=== PATIENT | female | born 1980 | race Caucasian/White ===

== ENCOUNTER 2018-04-26 11:13 | Outpatient (CLI) | payer OTHER ==
[2018-04-26 18:59] LABS: BASOPHILS % (AUTO) 0.5 %; EOSINOPHILS # (AUTO) 0.1 10^3/uL (0.0-0.7); EOSINOPHILS % (AUTO) 1.8 %; HGB - HEMOGLOBIN 14.3 g/dL (12.0-16.0); LYMPHOCYTES # (AUTO) 1.4 10^3/uL (1.5-3.5); MEAN CORPUSCULAR HEMOGLOBIN 31.5 pg (27.0-31.0); MEAN CORPUSCULAR HGB CONC 33.2 g/dL (32.0-36.0); MEAN CORPUSCULAR VOLUME 94.8 fL (81.0-99.0); MEAN PLATELET VOLUME 9.7 fL (7.9-10.8); MONOCYTES # (AUTO) 0.3 10^3/uL (0.0-1.0); MONOCYTES % (AUTO) 7.4 %; NEUTROPHILS # (AUTO) 1.7 10^3/uL (1.5-6.6); NEUTROPHILS % (AUTO) 49.3 %; PLT - PLATELET COUNT 179 10^3/uL (130-450); RED BLOOD COUNT 4.53 10^6/uL (4.20-5.40); RED CELL DISTRIBUTION WIDTH 12.5 % (12.0-15.0); WHITE BLOOD COUNT 3.4 x10^3/uL (4.8-10.8)
[2018-04-26 19:08] LABS: HB2 TOTAL 15.5 g/dL; HEMOGLOBIN A1C 0.52 g/dL; HEMOGLOBIN A1C % 5.2 % (4.6-6.2)
[2018-04-26 19:15] LABS: CHOL/HDL RATIO 4.1 (<4.4); CHOLESTEROL 207 mg/dL; GLUCOSE,FASTING 76 mg/dL (70-100); HDL CHOLESTEROL 50 mg/dL
[2018-04-26 19:30] LABS: LDL CHOLESTEROL,CALCULATED 145 mg/dL; LDL/HDL RATIO 2.9 (<4.4); VLDL CHOLESTEROL 12 mg/dL
== END 2018-04-26 23:59 | disposition home or self-care (01) ==
LOC: LAB.N 11:13
PROVIDERS: ATTEND Registered Nurse
DX: Z00.00 Encounter for general adult medical examination without abnormal findings (principal)
CPT/HCPCS: 36415; 80061; 82947; 83036; 83721; 84443; 85025

== ENCOUNTER 2018-08-12 11:00 | Outpatient (CLI) | payer OTHER ==
--- NOTE | 2018-08-12 15:37 | Ultrasound Report ---
Reason: TEST POSITIVE Procedure Date: 08/12/2018 Accession Number: [id number] / [id number] Procedure: US - OB First Trimester CPT Code: FULL RESULT: EXAM: FIRST TRIMESTER OBSTETRIC ULTRASOUND (Less than 11 weeks) EXAM DATE: 08/12/2018 11:45 AM. CLINICAL HISTORY: Positive test. For dating LMP: 06/19/2018. COMPARISONS: None. TECHNIQUE: Transabdominal and transvaginal ultrasound examination with static image documentation. CLINICAL DATES: EGA 7 weeks 5 days with CLEMENTE 03/26/2019 based on LMP. ASSESSMENT: Gestational Sac: Single intrauterine. Embryo: CRL (crown-rump length) 5.7 mm = 6 weeks 3 days. Cardiac activity: 124 beats per minute. Yolk sac: 1.5 mm. Amniotic fluid: Not accurately assessed at this gestational age. Early placenta: Not visible at this gestational age. Other: No perigestational fluid collection demonstrated. MATERNAL STRUCTURES: Uterus: Anteverted. Unremarkable. Cervix: Closed. Right Ovary/Adnexa: The ovary measures 3.4 x 2.5 x 2.7 cm, volume 12 cc. Unremarkable. Corpus luteum cyst 2.3 x 1.9 x 1.7 cm. Left Ovary/Adnexa: Left ovary not well seen. No left adnexal masses. Free Fluid: None. Other: None. IMPRESSION: 1. Single intrauterine at EGA 6 weeks 3 days with CLEMENTE 04/04/2019 based on crown-rump length, which is discordant with clinical dates. 2. Assigned dating is CLEMENTE 04/04/2019 based on current ultrasound. RADIA
== END 2018-08-12 11:01 | disposition home or self-care (01) ==
LOC: DI 11:00
PROVIDERS: ATTEND Nurse Practitioner Obstetrics & Gynecology
DX: Z32.01 Encounter for pregnancy test, result positive (principal)
CPT/HCPCS: 76801

== ENCOUNTER 2018-08-25 11:16 | Outpatient (CLI) | payer OTHER ==
[2018-08-25 17:49] LABS: MUDS CUTOFF CONCENTRATIONS CUTOFF CONC BELOW:
[2018-08-25 18:23] LABS: BILIRUBIN,URINE NEGATIVE (NEGATIVE); GLUCOSE, URINE (UA) NEGATIVE (NEGATIVE); KETONES,URINE (UA) NEGATIVE (NEGATIVE); LEUKOCYTE ESTERASE, URINE TRACE (NEGATIVE); NITRITE,URINE NEGATIVE (NEGATIVE); OCCULT BLOOD,URINE NEGATIVE (NEGATIVE); PROTEIN,URINE NEGATIVE (NEGATIVE); UROBILINOGEN,URINE 0.2 (NORMAL) E.U./dL (NORMAL)
[2018-08-25 18:28] LABS: CLARITY,URINE CLEAR (CLEAR)
[2018-08-25 18:38] LABS: AMPHETAMINE SCREEN,URINE NEGATIVE (NEGATIVE); BENZODIAZEPINES SCREEN, URINE NEGATIVE (NEGATIVE); COCAINE SCREEN URINE NEGATIVE (NEGATIVE); METHADONE SCREEN, URINE NEGATIVE (NEGATIVE); METHAMPHETAMINES SCREEN, URINE NEGATIVE (NEGATIVE); OPIATE SCREEN, URINE NEGATIVE (NEGATIVE); OXYCODONE SCREEN, URINE NEGATIVE (NEGATIVE); PROPOXYPHENE SCREEN, URINE NEGATIVE (NEGATIVE); TRICYCLIC ANTIDEPRESSANT,URINE NEGATIVE (NEGATIVE)
[2018-08-25 19:02] LABS: BACTERIA,URINE Few /HPF (None Seen); MUCUS,URINE Few Strands; RBC,URINE 0-5 /HPF (0-5); SQUAMOUS EPITHELIAL CELL,UR MANY Squamous (<= Few)
[2018-08-25 21:59] LABS: TRICHOMONAS VAGINALIS DNA NEGATIVE (NEGATIVE)
== END 2018-08-25 23:59 | disposition home or self-care (01) ==
LOC: LAB.R 11:16
PROVIDERS: ATTEND Registered Nurse
DX: O09.521 Supervision of elderly multigravida, first trimester (principal)
CPT/HCPCS: 80306; 81001; 87086; 87491; 87591; 87661

== ENCOUNTER 2018-09-20 11:21 | Outpatient (CLI) | payer OTHER ==
[2018-09-20 11:58] LABS: MUDS CUTOFF CONCENTRATIONS CUTOFF CONC BELOW:
[2018-09-20 12:06] LABS: BASOPHILS % (AUTO) 0.2 %; EOSINOPHILS % (AUTO) 0.2 %; HGB - HEMOGLOBIN 12.4 g/dL (12.0-16.0); LYMPHOCYTES # (AUTO) 1.5 10^3/uL (1.5-3.5); LYMPHOCYTES % (AUTO) 20.1 %; MEAN CORPUSCULAR HEMOGLOBIN 31.3 pg (27.0-31.0); MEAN CORPUSCULAR HGB CONC 33.8 g/dL (32.0-36.0); MEAN CORPUSCULAR VOLUME 92.5 fL (81.0-99.0); MEAN PLATELET VOLUME 8.2 fL (7.9-10.8); MONOCYTES # (AUTO) 0.5 10^3/uL (0.0-1.0); MONOCYTES % (AUTO) 6.3 %; NEUTROPHILS # (AUTO) 5.4 10^3/uL (1.5-6.6); NEUTROPHILS % (AUTO) 73.2 %; PLT - PLATELET COUNT 206 10^3/uL (130-450); RED BLOOD COUNT 3.95 10^6/uL (4.20-5.40); RED CELL DISTRIBUTION WIDTH 13.3 % (12.0-15.0); WHITE BLOOD COUNT 7.3 x10^3/uL (4.8-10.8)
[2018-09-20 12:07] LABS: BILIRUBIN,URINE NEGATIVE (NEGATIVE); GLUCOSE, URINE (UA) NEGATIVE (NEGATIVE); KETONES,URINE (UA) NEGATIVE (NEGATIVE); LEUKOCYTE ESTERASE, URINE TRACE (NEGATIVE); NITRITE,URINE NEGATIVE (NEGATIVE); OCCULT BLOOD,URINE NEGATIVE (NEGATIVE); PROTEIN,URINE NEGATIVE (NEGATIVE); UROBILINOGEN,URINE 0.2 (NORMAL) E.U./dL (NORMAL)
[2018-09-20 12:10] LABS: CLARITY,URINE CLEAR (CLEAR)
[2018-09-20 12:18] LABS: BACTERIA,URINE Few /HPF (None Seen); MUCUS,URINE Few Strands; RBC,URINE 0-5 /HPF (0-5); SQUAMOUS EPITHELIAL CELL,UR MANY Squamous (<= Few)
[2018-09-20 12:19] LABS: AMPHETAMINE SCREEN,URINE NEGATIVE (NEGATIVE); BENZODIAZEPINES SCREEN, URINE NEGATIVE (NEGATIVE); COCAINE SCREEN URINE NEGATIVE (NEGATIVE); METHADONE SCREEN, URINE NEGATIVE (NEGATIVE); METHAMPHETAMINES SCREEN, URINE NEGATIVE (NEGATIVE); OPIATE SCREEN, URINE NEGATIVE (NEGATIVE); OXYCODONE SCREEN, URINE NEGATIVE (NEGATIVE); PROPOXYPHENE SCREEN, URINE NEGATIVE (NEGATIVE); TRICYCLIC ANTIDEPRESSANT,URINE NEGATIVE (NEGATIVE)
[2018-09-21 11:57] LABS: HEPATITIS C ANTIBODY NON-REACTIVE (NON-REACTIVE)
[2018-09-21 11:59] LABS: HEPATITIS B SURFACE ANTIGEN NON-REACTIVE (NON-REACTIVE)
[2018-09-21 13:38] LABS: HIV AG/AB 4TH GEN NON-REACTIVE (NON-REACTIVE)
== END 2018-09-20 11:22 | disposition home or self-care (01) ==
LOC: LAB 11:21
PROVIDERS: ATTEND Registered Nurse
DX: Z36.89 Encounter for other specified antenatal screening (principal); Z31.5 Encounter for procreative genetic counseling
CPT/HCPCS: 80306; 81001; 81599; 85025; 86762; 86803; 86850; 86900; 86901; 87086; 87340; 87389

== ENCOUNTER 2018-11-16 09:01 | Outpatient (CLI) | payer OTHER ==
--- NOTE | 2018-11-18 08:11 | Ultrasound Report ---
Reason: ENCTR FOR OTHER SPECIFIED SCREENING Procedure Date: 11/16/2018 Accession Number: [id number] / [id number] Procedure: US - OB Detailed Eval CPT Code: FULL RESULT: EXAM: COMPLETE OBSTETRICAL ULTRASOUND EXAM DATE: 11/16/2018 04:40 PM. CLINICAL HISTORY: anatomic survey. COMPARISON: OB FIRST TRIMESTER 08/12/2018 11:07 AM. TECHNIQUE: Real-time sonographic evaluation of the fetus performed by the application chemist. Multiple inbound call center representative static images were saved for review. DATING: Established EGA 20 weeks 1 day with CLEMENTE 04/04/2019 based on first ultrasound/CRL. EGA 19 weeks 6 days with CLEMENTE 04/06/2019 based on the current ultrasound. GENERAL EVALUATION [place] . Cardiac activity: 155 bpm. movement: Visualized. Presentation: Variable. Placenta: Posterior position. No evidence for previa. Umbilical cord: 3 vessel cord. Central placental cord origin. Amniotic fluid: Normal RASHAUN 13.5 cm. 3.5 cm. BIOMETRY Bi-Parietal Diameter (BPD): 4.6 cm, 20 weeks 0 days Head Circumference (HC): 17.9 cm, 20 weeks 2 days Abdominal Circumference (AC): 15.7 cm, 20 weeks 6 days Femur Length (FL): 3.2 cm, 19 weeks 6 days Estimated Weight: 349 g, 58th percentile for 20 weeks 1 day. ANATOMY The intracranial structures, profile, face/nose/lips, spine, 4 chamber heart and outflow tracts, stomach, abdominal wall and cord insertion, diaphragm, kidneys, bladder, and extremities were visualized and demonstrate no abnormality. MATERNAL STRUCTURES Uterus: Unremarkable. Cervix: Long and closed. Transabdominal length 4.3 cm. Right ovary/adnexa: Unremarkable. Left ovary/adnexa: Unremarkable. Free fluid: None. IMPRESSION: 1. C[place] live intrauterine with gestational age 20 weeks 1 day based on first ultrasound. 2. Estimated weight is within expected limits for assigned dating. 3. Normal anatomic survey. No anatomic abnormalities are detected at this time. RADIA
== END 2018-11-16 09:02 | disposition home or self-care (01) ==
LOC: DI 09:01
PROVIDERS: ATTEND Nurse Practitioner Obstetrics & Gynecology
DX: O09.522 Supervision of elderly multigravida, second trimester (principal); Z3A.20 20 weeks gestation of pregnancy; Z36.89 Encounter for other specified antenatal screening
CPT/HCPCS: 76811

== ENCOUNTER 2019-01-05 09:34 | Outpatient (CLI) | payer OTHER ==
[2019-01-05 10:43] LABS: HGB - HEMOGLOBIN 10.1 g/dL (12.0-16.0); MEAN CORPUSCULAR HEMOGLOBIN 31.3 pg (27.0-31.0); MEAN CORPUSCULAR HGB CONC 33.2 g/dL (32.0-36.0); MEAN CORPUSCULAR VOLUME 94.1 fL (81.0-99.0); MEAN PLATELET VOLUME 9.3 fL (7.9-10.8); RED BLOOD COUNT 3.23 10^6/uL (4.20-5.40); RED CELL DISTRIBUTION WIDTH 12.7 % (12.0-15.0); WHITE BLOOD COUNT 6.8 x10^3/uL (4.8-10.8)
== END 2019-01-05 09:35 | disposition home or self-care (01) ==
LOC: LAB 09:34
PROVIDERS: ATTEND Obstetrics & Gynecology
DX: Z36.89 Encounter for other specified antenatal screening (principal)
CPT/HCPCS: 36415; 82950; 85027; 86850

== ENCOUNTER 2019-02-14 09:24 | Outpatient (CLI) | payer OTHER ==
[2019-02-14 09:45] LABS: HGB - HEMOGLOBIN 10.2 g/dL (12.0-16.0); MEAN CORPUSCULAR HEMOGLOBIN 31.2 pg (27.0-31.0); MEAN CORPUSCULAR HGB CONC 32.5 g/dL (32.0-36.0); MEAN PLATELET VOLUME 9.3 fL (7.9-10.8); RED BLOOD COUNT 3.27 10^6/uL (4.20-5.40); RED CELL DISTRIBUTION WIDTH 15.5 % (12.0-15.0)
== END 2019-02-14 09:25 | disposition home or self-care (01) ==
LOC: LAB 09:24
PROVIDERS: ATTEND Nurse Practitioner Obstetrics & Gynecology
DX: O99.019 Anemia complicating pregnancy, unspecified trimester (principal); Z3A.00 Weeks of gestation of pregnancy not specified
CPT/HCPCS: 36415; 85027

== ENCOUNTER 2019-03-06 07:00 | Outpatient (CLI) | payer OTHER ==
[2019-03-06 23:01] LABS: TRICHOMONAS VAGINALIS DNA NEGATIVE (NEGATIVE)
== END 2019-03-06 23:59 | disposition home or self-care (01) ==
LOC: LAB.R 07:00
PROVIDERS: ATTEND Nurse Practitioner Obstetrics & Gynecology
DX: Z36.85 Encounter for antenatal screening for Streptococcus B (principal); Z11.3 Encounter for screening for infections with a predominantly sexual mode of transmission
CPT/HCPCS: 87491; 87591; 87661; 87797

== ENCOUNTER 2019-03-06 10:12 | Outpatient (CLI) | payer OTHER ==
[2019-03-06 10:44] LABS: MEAN CORPUSCULAR HEMOGLOBIN 31.8 pg (27.0-31.0); MEAN CORPUSCULAR HGB CONC 32.4 g/dL (32.0-36.0); MEAN PLATELET VOLUME 9.8 fL (7.9-10.8); RED BLOOD COUNT 3.46 10^6/uL (4.20-5.40); RED CELL DISTRIBUTION WIDTH 15.3 % (12.0-15.0); WHITE BLOOD COUNT 5.7 x10^3/uL (4.8-10.8)
== END 2019-03-06 10:13 | disposition home or self-care (01) ==
LOC: LAB 10:12
PROVIDERS: ATTEND Nurse Practitioner Obstetrics & Gynecology
DX: O99.019 Anemia complicating pregnancy, unspecified trimester (principal); Z36.85 Encounter for antenatal screening for Streptococcus B; Z11.3 Encounter for screening for infections with a predominantly sexual mode of transmission
CPT/HCPCS: 36415; 85027; 87491; 87591; 87661; 87797

== ENCOUNTER 2019-04-04 14:59 | Inpatient (IN) | payer OTHER ==
[2019-04-04] MEDS ORDERED: LIDOCAINE-MPF 1% 30 ML VIAL ONE (15:20)
[2019-04-04] MEDS ORDERED: LACTATED RINGERS 1,000 ML IV ONE (15:21)
[2019-04-04] MEDS ORDERED: OXYTOCIN/DEXTROSE 5 % 30 UNIT/500 ML BAG IV ONE (15:21)
[2019-04-04] MEDS ORDERED: miSOPROStoL 200 MCG TABLET ONE (15:21)
[2019-04-04] MEDS ORDERED: OXYTOCIN/DEXTROSE 5 % 30 UNIT/500 ML BAG IV PRN (15:36)
[2019-04-04] MEDS ORDERED: ONDANSETRON 4 MG/2 ML VIAL IVP PRN (15:36)
[2019-04-04] MEDS ORDERED: fentaNYL 100 MCG/2 ML VIAL IVP PRN (15:36)
[2019-04-04] MEDS ORDERED: SODIUM CHLORIDE FLUSH 0.9% 10 ML SYRINGE IVP PRN (15:36)
[2019-04-04] MEDS ORDERED: LACTATED RINGERS 1,000 ML IV SCH (16:00)
[2019-04-04] MEDS ORDERED: TERBUTALINE 1 MG/ML VIAL SUBQ SCH (16:00)
[2019-04-04] MEDS ORDERED: ACETAMINOPHEN 325 MG TABLET PO SCH (16:00)
[2019-04-04 16:01] LABS: BASOPHILS % (AUTO) 0.2 %; HGB - HEMOGLOBIN 12.7 g/dL (12.0-16.0); LYMPHOCYTES % (AUTO) 12.4 %; MEAN CORPUSCULAR HEMOGLOBIN 33.1 pg (27.0-31.0); MEAN CORPUSCULAR VOLUME 97.1 fL (81.0-99.0); MEAN PLATELET VOLUME 10.7 fL (7.9-10.8); MONOCYTES # (AUTO) 0.5 10^3/uL (0.0-1.0); MONOCYTES % (AUTO) 5.7 %; NEUTROPHILS # (AUTO) 6.6 10^3/uL (1.5-6.6); NEUTROPHILS % (AUTO) 81.1 %; PLT - PLATELET COUNT 173 10^3/uL (130-450); RED BLOOD COUNT 3.84 10^6/uL (4.20-5.40); RED CELL DISTRIBUTION WIDTH 13.7 % (12.0-15.0); WHITE BLOOD COUNT 8.1 x10^3/uL (4.8-10.8)
--- NOTE | 2019-04-04 16:22 | HISTORY & PHYSICAL EXAMINATION ---
DATE OF SERVICE: 04/04/2019 Physician: Anna Beavers MD ADMISSION DIAGNOSES 1. Active labor at term. 2. Otherwise, uncomplicated medical and obstetrical history. CHIEF COMPLAINT: Labor. HISTORY OF PRESENT ILLNESS: The patient came to her OB appointment today with mild contractions. He r cervical exam was 4-5 cm dilated. She wanted to go home, and she was told to return for increasing labor symptoms. She indeed returned complaining of more painful contractions and pressure. PAST MEDICAL HISTORY: Negative. PAST SURGICAL HISTORY: [place] teeth. MEDICATIONS: vitamins and iron. SOCIAL HISTORY: No tobacco, alcohol or drug use. FAMILY HISTORY: Maternal grandmother and maternal aunt with breast cancer. OBSTETRIC HISTORY: Spontaneous vaginal delivery x3 in the past. REVIEW OF SYSTEMS: All AGA and uncomplicated. PHYSICAL EXAMINATION VITAL SIGNS: The patient is afebrile with normal vital signs. GENERAL: She is alert and pleasant, and is softly moaning with contractions. ABDOMEN: Nontender. EXTERNAL FEMALE GENITALIA: Normal. Sterile vaginal examination 9 cm, 100% effaced, 0 station, with a bulging bag of kelsey coming down to +2 station. Initial NST was category 1. ASSESSMENT AND PLAN: A 38-year-old G4, P3-0-0-3 at 40 weeks and 0 days by a 6-week ultrasound, who p resents with active spontaneous labor. heart evaluation is reassuring. She is vertex, AGA and group B strep negative. Anticipate normal spontaneous vaginal delivery. course also anticipated to be normal. She has received both her flu vaccine and her Tdap vaccine. She is Rh positive and rubella immune. TD: 04/04/2019 16:05
[2019-04-04] MEDS ORDERED: WITCH HAZEL/GLYCERIN 1 PAD TOP PRN (16:43)
[2019-04-04] MEDS ORDERED: HYDROCORTISONE 1% CREAM 28 GM TUBE PR PRN (16:43)
[2019-04-04] MEDS ORDERED: ONDANSETRON ODT 4 MG TABLET TL PRN (16:43)
[2019-04-04] MEDS ORDERED: ACETAMINOPHEN 325 MG TABLET PO PRN (16:45)
[2019-04-04] MEDS ORDERED: SODIUM CHLORIDE FLUSH 0.9% 10 ML SYRINGE IVP SCH (17:00)
[2019-04-04] MEDS: IBUPROFEN 600 MG TABLET PO SCH (20:29)
--- NOTE | 2019-04-04 20:54 | PROCEDURE REPORT ---
DATE OF SERVICE: 04/04/2019 Physician: Anna Beavers MD PREOPERATIVE DIAGNOSES 1. Intrauterine at 40 weeks and 0 days. 2. Active spontaneous labor. POSTOPERATIVE DIAGNOSIS: Status post spontaneous vaginal delivery at term. PROCEDURE: Spontaneous vaginal delivery at term. SURGEON: Anna Beavers MD FINDINGS: Liveborn female with a lusty cry. Clear amniotic fluid. No lacerations. ESTIMATED BLOOD LOSS: 200 mL DESCRIPTION OF PROCEDURE: The patient presented in active spontaneous labor on her due date at 8 cm. She received intermittent monitoring. She did not receive pain medicines other than comfort measur es per her request. She was more comfortable standing up and wished to push in that position. She be came complete at 1615. At 1620, her bag of water broke for clear fluid. At 1622, she delivered while standing without complications. There was no nuchal cord. Shoulders and body were easily delivered. The baby was given to mom who performed skin to skin with her. The umbilical cord was left pulsati ng for five minutes. It was clamped x2 and cut by the father of the baby. The cord was drained. The placenta was delivered spontaneously with Valsalva effort. It was intact with a 3-vessel cord. The re were no lacerations. Fundus was firm and 1 cm below the umbilicus post-placental delivery. The we ight and Apgars are pending. Baby is exhibiting signs of wanting to breastfeed. TD: 04/04/2019 16:44
[2019-04-04] MEDS ORDERED: DOCUSATE SODIUM 100 MG CAPSULE PO SCH (21:00)
[2019-04-04] MEDS ORDERED: SIMETHICONE CHEW 80 MG TABLET PO SCH (22:00)
[2019-04-05] MEDS: IBUPROFEN 600 MG TABLET PO SCH (04:01)
--- NOTE | 2019-04-05 07:50 | Discharge Plan ---
Discharge Plan Problem Reviewed?: Yes Disposition: Home, Self Care Condition: Good Diet: Regular Activity Restrictions: No Restrictions Shower Restrictions: No No Smoking: If you smoke, Please STOP! Call for help. Follow-up with: Delilah Lane CNM, ARNP [Provider Admit Priv/Credential] - 6 Weeks
[2019-04-05 08:06] VITALS: BP 112/70
--- NOTE | 2019-04-05 12:35 | Labor Flowsheet ---
Labor Flowsheet Datetime Report Generated by CPN: 04/05/2019 12:35 Datetime: 04/05/2019 08:04 Pulse: 83 SpO2 (%): 99 LaborFlag: Labor Datetime: 04/05/2019 08:01 VITAL SIGNS NBP Sys/Claritza/Mean (mmHg): 112 : 70 : 80 Datetime: 04/04/2019 16:15 VAGINAL EXAM Dilatation (cm): 10.0 Exam by: coby;linson Vaginal Exam Comments: feeling more pressure COMMUNICATION Communication: Provider at Bedside Datetime: 04/04/2019 16:06 Stage of : Labor Respirations: 17 Temperature (C): 36.9 Datetime: 04/04/2019 16:04 PATIENT CARE Patient Position/Activity: Standing Comfort Measures: Breathing/Relaxation; Coaching I/O Interventions: Up to BR Datetime: 04/04/2019 15:50 Communication Comments: barak
--- NOTE | 2019-04-30 18:07 | DISCHARGE SUMMARY ---
Physician: Anna Beavers MD DATE OF ADMISSION: 04/04/2019 DATE OF DISCHARGE: 04/05/2019 ADMISSION DIAGNOSES 1. Intrauterine at 40 weeks. 2. Active spontaneous labor. DISCHARGE DIAGNOSES: Status post spontaneous vaginal delivery at term. OPERATIONS AND PROCEDURES: 04/04/2019 spontaneous vaginal delivery of a live born female. Estimated blood loss was 200 mL. The delivery was uncomplicated. HOSPITAL COURSE: The patient was admitted in spontaneous labor, and delivered shortly after arrival without problems. She was requesting discharge prior to 24 hours due to the . She was feeling well with a happy mood. She was eating, ambulating, urinating, and without difficulties. Her bleeding was not heavy, and her pain was not significant. She was afebrile with normal vital signs. She was alert and smiling, in no apparent distress. Abdomen: Soft, nontender, nondistended. Fundus firm, nontender, and 1 cm below the umbilicus. There was no lower extremity cl ubbing, cyanosis or edema. DISCHARGE INSTRUCTIONS 1. Follow up in 6 weeks at [facility]. 2. Routine instructions given. MEDICATIONS 1. Ibuprofen p.r.n. pain. 2. Continue vitamins daily. DISPOSITION: Home. CONDITION: Good. TD: 04/30/2019 15:51
== END 2019-04-05 10:30 | disposition home or self-care (01) | DRG 807 ==
LOC: WFO 14:59 → FBP 15:01 → WFO 15:04 → FBP 15:05
PROVIDERS: ADMIT Obstetrics & Gynecology; ATTEND Obstetrics & Gynecology
PROC: 10E0XZZ Delivery of Products of Conception, External Approach (ICD-10-PCS; principal; 2019-04-04)
DX: O80 Encounter for full-term uncomplicated delivery (principal); Z37.0 Single live birth; Z3A.40 40 weeks gestation of pregnancy
CPT/HCPCS: 85025; A9270